=== PATIENT | female | born 1975 | race Asian ===

== ENCOUNTER 2022-05-22 10:15 | Emergency (ER) | payer OTHER ==
[2022-05-22 10:23] VITALS: BP 128/94; PULSE 85; TEMP 98; BMI 21.9
[2022-05-22] MEDS ORDERED: IBUPROFEN 600 MG TABLET (FP) PO ONE ×2 (12:18→13:27)
== END 2022-05-22 16:00 | disposition home or self-care (01) ==
LOC: JER 10:15
DX: J02.9 Acute pharyngitis, unspecified (principal)
CPT/HCPCS: 0241U-QW; 87651; 99283-25